=== PATIENT | male | born 1955 | race Caucasian/White ===

== ENCOUNTER 2018-12-09 16:34 | Emergency (ER) | payer BC ==
--- OUTSIDE RECORDS SUMMARY | 2018-12-09 16:38 | XMS REPORT | Continuity of Care Document ---
:1955 External Reference #:[id number] Author Name Shanice Jin Care Team Providers Name Role Phone Carmen Martins MD Care Team Information Teacher Physically Impaired Unavailable Lesvia Mejia MD Primary Care Physician Unavailable Payers Date Identification Numbers Payment Provider Subscriber Effective: 2015 Policy Number: [id number] [facility] Eddie Goldberg PayID: [id number] [address] [place] [address] Advance Directives Type Date Description Status Comment Other Directive 12/05/2008 Health Care Proxy Current and Verified Problems Active Problems Provider Date Depressive disorder Carmen Martins M.D., FACP Onset: 08/20/2010 Pure hypercholesterolemia Carmen Martins M.D., FACP Onset: 08/20/2010 Benign prostatic hypertrophy without Carmen Martins M.D., FACP Onset: 2010 outflow obstruction Obstructive sleep apnea syndrome Roberta Fitch DNP, RN, 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- Family History Date Family Member(s) Observation Comments : (age Father due to MDS Myelodysplastic syndrome, 83 Years) was quadriplegic following cervical fracture, of pneumonia Mother Diabetes, Non Insulin Dependent Mother 87 Mother Kidney Disease Mother Atrial Fibrillation First Son 25 First Son Testicular Cancer First Son Aortic Stenosis bicuspid aortic valve Second Son 21 Third Son 17 First Sister adopted Social History Type Date Description Comments Sex Unknown Marital Status Traci Yusuf 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 days 500-125mg Tablets Bupropion HCL ER 1 by mouth every 90tabs [facility] Roberto, 12/17/2017 (XL) day M.D. 150mg Tablets ER 24HR Wrist Brace/Suede for use at night 1units R20.2 [facility], 2015 Finish/Left M.D. Misc Wrist Brace/Suede For use at night 1units R20.2 [facility], 2015 Finish/Right/ [facility] [address] [facility] Roberto, 10/18/2009 10mg Tablets bedtime M.D. Excedrin Extra 1-2 bid prn 100tabs Unknown Strength [phone] Tablets History Medications Gentamicin Sulfate 1-2 drop in 5ml H10.89 Radha López, 01/01/2017 - 0.3% eyes every 4 M.D. 12/16/2017 Solution hours x 5 days Bupropion HCL ER (XL) take one 90tabs Lesvia 08/24/2013 - 300mg tablet by Arley Mejia 12/17/2017 Tablets ER 24HR mouth in the morning Bupropion HCL XL take one 90tabs 311 Carmen Martins, 05/08/2011 - 300mg tablet by Arley, [facility] 08/24/2013 Tablets ER 24HR mouth in the morning Bupropion HCL XL 1 every day 90tabs 311 Carmen Martins, 04/02/2011 - 150mg every morning M.DMae, FACP 05/08/2011 Tablets ER 24HR Multivitamins 1 capsule QS Carmen Martins, 08/20/2010 - Capsules brady;y Arley, [facility] 06/28/2013 Hydrocodone-Acetaminoph take 1-2 as 30tabs 724.2 Carmen Martins, 08/20/2010 - en needed every M.D., FACP 04/02/2011 5/500mg Tablets 4-6 hours for pain Cyclobenzaprine HCL 1 tablet three 30tabs 724.2 Carmen Martins, 08/20/2010 - 10mg times a day as M.D., [facility] 04/02/2011 Tablets needed Cipro 1 tablet twice 10tabs Carmen Martins, 04/11/2010 - 250mg Tablets daily for 5 M.D., [facility] 08/20/2010 days Zoloft 1 1/2 tablets 135tabs Carmen Martins, 10/18/2009 - 50mg Tablets daily M.D., [facility] 04/02/2011 Wellbutrin XL 1 po qd Carmen Martins, 10/18/2009 - 150mg Tablets M.D., [facility] 08/20/2010 ER 24HR Nasonex 2 sprays each sample Carmen Martins, 10/18/2009 - 50mcg/Act nostril daily M.D., [facility] 08/20/2010 Suspension Metamucil po qd prn Unknown - 28.3% Powder 12/15/2016 Immunizations CPT Code Status Date Vaccine Lot # [id number] Given 11/16/2018 Tetanus And Diptheria (Td) For Adult Use [id number] Preservative Free [id number] Given 02/13/2018 Influenza Virus Vaccine, Quadrivalent, Split, Preservative Free [id number] Given 10/30/2011 Tdap - Tetanus/Diptheria/Acellular Pertussis [id number] Given 10/07/2011 Zoster (Zostavax) [id number] Vital Signs Date Vital Result Comment 11/16/2018 10:47am Height 71 inches 5'11" Weight 199.00 lb Heart Rate 81 /min BP Systolic Sitting 135 mmHg BP Diastolic Sitting 87 mmHg O2 % BldC Oximetry 96 % BMI (Body Mass Index) 27.8 kg/m2 03/19/2018 9:57am Height 71 inches 5'11" Weight 192.00 lb Heart Rate 85 /min BP Systolic 119 mmHg BP Diastolic 78 mmHg O2 % BldC Oximetry 97 % BMI (Body Mass Index) 26.8 kg/m2 12/17/2017 3:03pm Height 71 inches 5'11" Weight 193.00 lb Heart Rate 76 /min BP Systolic 154 mmHg BP Diastolic 102 mmHg BP Systolic Sitting 141 mmHg BP Diastolic Sitting 91 mmHg O2 % BldC Oximetry 97 % BMI (Body Mass Index) 26.9 kg/m2 09/09/2017 1:53pm Height 71 inches 5'11" Weight 198.12 lb Heart Rate 82 /min BP Systolic Sitting 130 mmHg BP Diastolic Sitting 86 mmHg O2 % BldC Oximetry 98 % BMI (Body Mass Index) 27.6 kg/m2 01/01/2017 9:55am Height 71 inches 5'11" Weight 191.25 lb Heart Rate 85 /min BP Systolic Sitting 130 mmHg BP Diastolic Sitting 80 mmHg Body Temperature 96.6 F O2 % BldC Oximetry 98 % BMI (Body Mass Index) 26.7 kg/m2 12/16/2016 11:21am Height 71 inches 5'11" Weight 188.25 lb Heart Rate 80 /min BP Systolic 130 mmHg BP Diastolic 86 mmHg Body Temperature 97.3 F O2 % BldC Oximetry 98 % BMI (Body Mass Index) 26.3 kg/m2 10/07/2016 10:12am Height 71 inches 5'11" Weight 195.00 lb Heart Rate 75 /min BP Systolic 118 mmHg BP Diastolic 86 mmHg O2 % BldC Oximetry 97 % BMI (Body Mass Index) 27.2 kg/m2 12/14/2015 9:19am Height 71 inches 5'11" Weight 193.00 lb Heart Rate 90 /min BP Systolic Sitting 104 mmHg BP Diastolic Sitting 70 mmHg Body Temperature 96.9 F O2 % BldC Oximetry 98 % BMI (Body Mass Index) 26.9 kg/m2 10/03/2015 10:03am Height 71 inches 5'11" Weight 195.00 lb Heart Rate 64 /min BP Systolic Sitting 130 mmHg BP Diastolic Sitting 68 mmHg Respiratory Rate 14 /min O2 % BldC Oximetry 98 % BMI (Body Mass Index) 27.2 kg/m2 08/23/2015 4:26pm Height 71 inches 5'11" Weight 198.00 lb Heart Rate 70 /min BP Systolic Sitting 124 mmHg BP Diastolic Sitting 82 mmHg Respiratory Rate 15 /min Body Temperature 97.0 F O2 % BldC Oximetry 98 % BMI (Body Mass Index) 27.6 kg/m2 12/12/2014 1:36pm Height 71 inches 5'11" Weight 189.50 lb Heart Rate 80 /min BP Systolic Sitting 112 mmHg BP Diastolic Sitting 80 mmHg Body Temperature 96.9 F O2 % BldC Oximetry 99 % BMI (Body Mass Index) 26.4 kg/m2 03/14/2014 9:14am Height 71 inches 5'11" Weight 185.00 lb Heart Rate 72 /min BP Systolic Sitting 110 mmHg BP Diastolic Sitting 80 mmHg Respiratory Rate 16 /min O2 % BldC Oximetry 98 % Ra BMI (Body Mass Index) 25.8 kg/m2 06/28/2013 11:11am Height 71 inches 5'11" Weight 188.00 lb Heart Rate 66 /min BP Systolic Sitting 122 mmHg BP Diastolic Sitting 78 mmHg Respiratory Rate 16 /min Body Temperature 98.4 F BMI (Body Mass Index) 26.2 kg/m2 10/30/2011 1:48pm Height 71 inches 5'11" Weight 192.50 lb Heart Rate 64 /min BP Systolic Sitting 108 mmHg BP Diastolic Sitting 70 mmHg BMI (Body Mass Index) 26.8 kg/m2 10/07/2011 10:40am Height 71 inches 5'11" Weight 190.75 lb Heart Rate 76 /min BP Systolic Sitting 104 mmHg BP Diastolic Sitting 62 mmHg BMI (Body Mass Index) 26.6 kg/m2 07/14/2011 12:02pm Height 71 inches 5'11" Weight 193.12 lb Heart Rate 60 /min BP Systolic Sitting 110 mmHg BP Diastolic Sitting 80 mmHg Body Temperature 98.2 F O2 % BldC Oximetry 98 % BMI (Body Mass Index) 26.9 kg/m2 05/08/2011 11:22am Height 71 inches 5'11" Weight 201.00 lb Heart Rate 76 /min BP Systolic Sitting 122 mmHg BP Diastolic Sitting 74 mmHg BMI (Body Mass Index) 28.0 kg/m2 04/02/2011 11:16am Height 71 inches 5'11" Weight 201.00 lb Heart Rate 60 /min BP Systolic Sitting 112 mmHg L BP Diastolic Sitting 78 mmHg L BMI (Body Mass Index) 28.0 kg/m2 11/27/2010 11:27am Height 71 inches 5'11" Weight 196.00 lb Heart Rate 72 /min BP Systolic Sitting 126 mmHg BP Diastolic Sitting 84 mmHg BMI (Body Mass Index) 27.3 kg/m2 08/20/2010 9:23am Weight 208.00 lb Heart Rate 73 /min BP Systolic Sitting 118 mmHg BP Diastolic Sitting 72 mmHg Results Test Date Facility Test Result H/L Range Note Laboratory test 08/17/2018 [facility] PSA Diagnostic 2.782 ng/ mL N 0-4.[address] [place] [address] [phone] Laboratory test 12/24/2017 [facility] PSA Diagnostic 2.839 ng/ mL N 0-4.[address] [place] [address] [phone] Lipid Profile 12/08/2017 [facility] Triglycerides 136 mg/dL 3 (Trig/Chol/HDL) [address] [place] [address] [phone] Cholesterol 153 mg/dL 4 HDL Cholesterol 51.1 mg/dL 5 LDL Cholesterol 75 mg/dL 6 Comp Metabolic Panel 12/08/2017 [facility] Sodium 141 mmol/L N 135-[address] [place] [address] [phone] Potassium 4.4 mmol/L N 3.5-5.0 Chloride 105 mmol/L N 101-111 Co2 Carbon Dioxide 29 mmol/L N 22-32 Anion Gap 7 mmol/L N 2-11 Glucose 91 mg/dL N 70-100 Blood Urea Nitrogen 17 mg/dL N 6-24 Creatinine 1.04 mg/dL N 0.67-1.17 BUN/Creatinine Ratio 16.3 N 8-20 Calcium 9.2 mg/dL N 8.6-10.3 Total Protein 6.5 g/dL N 6.4-8.9 Albumin 4.3 g/dL N 3.2-5.2 Globulin 2.2 g/dL N 2-4 Albumin/Globulin Ratio 2.0 N 1-3 Total Bilirubin 0.80 mg/dL N 0.2-1.0 Alkaline Phosphatase 74 U/L N 34-104 Alt 22 U/L N 7-52 Ast 17 U/L N 13-39 Egfr Non- 72.8 >60 Egfr 88.1 >60 7 Laboratory test 12/16/2016 [facility] PSA Screening 2.080 N 0- 4.[address] ng/[place] [address] [phone] Lipid Profile 12/01/2016 [facility] Triglycerides 94 mg/dL N 9, 10 (Trig/Chol/HDL) [address] [place] [address] [phone] Cholesterol 132 mg/dL N 11 HDL Cholesterol 43.2 mg/dL N 12 LDL Cholesterol 70 mg/dL N 13 Comp Metabolic Panel 12/01/2016 [facility] Sodium 138 mmol/L N 133-145 [address] [place] [address] [phone] Potassium 4.2 mmol/L N 3.5-5.0 Chloride 105 mmol/L N 101-111 Co2 Carbon Dioxide 29 mmol/L N 22-32 Anion Gap 4 mmol/L N 2-11 Glucose 87 mg/dL N 70-100 Blood Urea Nitrogen 16 mg/dL N 6-24 Creatinine 1.03 mg/dL N 0.67-1.17 BUN/Creatinine Ratio 15.5 N 8-20 Calcium 8.9 mg/dL N 8.6-10.3 Total Protein 6.2 g/dL Low 6.4-8.9 Albumin 4.0 g/dL N 3.2-5.2 Globulin 2.2 g/dL N 2-4 Albumin/Globulin Ratio 1.8 N 1-3 Total Bilirubin 0.90 mg/dL N 0.2-1.0 Alkaline Phosphatase 60 U/L N 34-104 Alt 19 U/L N 7-52 Ast 15 U/L N 13-39 Egfr Non- 73.9 N >60 Egfr 95.1 N >60 14 Lipid Profile 12/08/2015 [facility] Triglycerides 89 mg/dL N 15, 16 (Trig/Chol/HDL) [address] [place] [address] [phone] Cholesterol 147 mg/dL N 17 HDL Cholesterol 49.7 mg/dL N 18 LDL Cholesterol 80 mg/dL N 19 Comp Metabolic Panel 12/08/2015 [facility] Sodium 139 mmol/L N 133-145 [address] [place] [address] [phone] Potassium 4.2 mmol/L N 3.5-5.0 Chloride 105 mmol/L N 101-111 Co2 Carbon Dioxide 29 mmol/L N 22-32 Anion Gap 5 mmol/L N 2-11 Glucose 83 mg/dL N 70-100 Blood Urea Nitrogen 14 mg/dL N 6-24 Creatinine 1.05 mg/dL N 0.67-1.17 BUN/Creatinine Ratio 13.3 N 8-20 Calcium 9.2 mg/dL N 8.6-10.3 Total Protein 6.7 g/dL N 6.4-8.9 Albumin 4.2 g/dL N 3.2-5.2 Globulin 2.5 g/dL N 2-4 Albumin/Globulin Ratio 1.7 N 1-3 Total Bilirubin 1.00 mg/dL N 0.2-1.0 Alkaline Phosphatase 64 U/L N 34-104 Alt 22 U/L N 7-52 Ast 16 U/L N 13-39 Egfr Non- 72.5 N >60 Egfr 93.3 N >60 20 Laboratory 12/12/2014 [facility] HIV 1&2 AB Nonreactive N Nonreactive [address] [place] [address] Referred [phone] Hepatitis C Antibody Nonreactive N Nonreactive Celiac Panel 12/12/2014 [facility] Tissue Transglutaminase <1.2 U/mL N [address] IgA Ab [place], [place] [id number] [phone] Immunoglobulin A 106 mg/dL N 61 - 356 Celiac Interpretation See Comment N 23 Lipid Profile 10/04/2014 [facility] Triglycerides 85 mg/dL N 24, 25 (Trig/Chol/HDL) [address] [place], [place] [address] [phone] Cholesterol 145 mg/dL N 26 HDL Cholesterol 47.4 mg/dL N 27 LDL Cholesterol 81 mg/dL N 28 Comp Metabolic Panel 10/04/2014 [facility] Sodium 139 mmol/L N 133-145 [address] [place], [place] [id number] [phone] Potassium 4.2 mmol/L N 3.5-5.0 Chloride 104 mmol/L N 101-111 Co2 Carbon Dioxide 28 mmol/L N 22-32 Anion Gap 7 mmol/L N 2-11 Glucose 91 mg/dL N 70-100 Blood Urea Nitrogen 17 mg/dL N 6-24 Creatinine 1.13 mg/dL N 0.67-1.17 BUN/Creatinine Ratio 15.0 N 8-20 Calcium 9.2 mg/dL N 8.6-10.3 Total Protein 6.4 g/dL N 6.4-8.9 Albumin 4.4 g/dL N 3.2-5.2 Globulin 2.0 g/dL N 2-4 Albumin/Globulin Ratio 2.2 N 1-3 Total Bilirubin 1.00 mg/dL N 0.2-1.0 Alkaline Phosphatase 62 U/L N 34-104 Alt 28 U/L N 7-52 Ast 20 U/L N 13-39 Egfr Non- 66.9 N >60 Egfr 86.0 N >60 29 Comp Metabolic Panel 07/05/2013 [facility] Sodium 142 mmol/L 133-[address] [place] [address] [phone] Potassium 4.4 mmol/L 3.7-5.6 Chloride 109 mmol/L 101-111 Co2 Carbon Dioxide 28 mmol/L 22-32 Anion Gap 5 mmol/L 2-11 Glucose 100 mg/dL 70-100 Blood Urea Nitrogen 13 mg/dL 6-24 Creatinine 1.03 mg/dL 0.67-1.17 BUN/Creatinine Ratio 12.6 8-20 Calcium 9.2 mg/dL 8.6-10.3 Total Protein 6.6 g/dL 6.4-8.9 Albumin 4.3 g/dL 3.2-5.2 Globulin 2.3 g/dL 2-4 Albumin/Globulin Ratio 1.9 1-3 Total Bilirubin 0.40 mg/dL 0.2-1.0 Alkaline Phosphatase 66 U/L 34-104 Alt 29 U/L 7-52 Ast 18 U/L 13-39 Egfr Non- 74.7 >60 Egfr 96.1 >60 30 Laboratory test 07/05/2013 [facility] TSH (Thyroid 1.77 0.34- 5.[address] Stimulating Horm) IU/[place] [address] [phone] Lipid Profile 07/05/2013 [facility] Triglycerides 94 mg/dL 32 (Trig/Chol/HDL) [address] [place] [address] [phone] Cholesterol 119 mg/dL 33 HDL Cholesterol 45.0 mg/dL 34 LDL Cholesterol 55 mg/dL 35 Laboratory test 01/05/2012 [facility] C Reactive 1.3 mg/L Less Than [address] Protein High 3 [place] [address] Sensit [phone] Lipid Profile 01/05/2012 [facility] Triglyceride 73 mg/dL 40- 200 (Trig/Chol/HDL) [address] [place], [place] [id number] [phone] Cholesterol 148 mg/dL Less Than 200 37 High Density Lipoprotein 46 mg/dL 40-60 38 Cholesterol/HDL Ratio 3.22 AVERAGE 1-4.97 Low Density Lipoprotein 87 mg/dL Less Than 100 39 Laboratory test 01/05/2012 [facility] Erythrocyte Sed 10 MM/HR 0-[address] [place] [address] [phone] Liver Function 01/05/2012 [facility] Total Protein 6.7 GM/DL 6.2-8.[address] [place] [address] [phone] Albumin 4.3 GM/DL 3.6-5.4 Globulin 2.4 GM/DL 2-4 Albumin/Globulin Ratio 1.8 1-3 Bilirubin Total 1.5 mg/dL 0.4-1.5 40 Bilirubin Direct 0.2 mg/dL 0.1-0.5 Indirect Bilirubin 1.3 mg/dL High 0.3-1.0 41 Alkaline Phosphatase 71 U/L 39-117 Alt (SGPT) 34 U/L 17-63 Ast (Sgot) 24 U/L 12-42 Laboratory test 01/05/2012 [facility] PSA,Diagnostic 1.00 NG/ML 0-4 [address] [place] [address] [phone] Lipid Profile 10/10/2011 [facility] Triglyceride 132 mg/dL 40 -200 (Trig/Chol/HDL) [address] [place] [address] [phone] Cholesterol 208 mg/dL High Less Than 200 43 High Density Lipoprotein 49 mg/dL 40-60 44 Cholesterol/HDL Ratio 4.24 AVERAGE 1-4.97 Low Density Lipoprotein 133 mg/dL High Less Than 100 45 Comp Metabolic Panel 10/10/2011 [facility] Sodium 138 mmol/L 135-[address] [place] [address] [phone] Potassium 4.3 mmol/L 3.5-5.0 Chloride 104 mmol/L 101-111 Co2 (Carbon Dioxide) 29.0 mmol/L 22-32 Anion Gap 5.0 mmol/L 2-11 46 Glucose 94 mg/dL 70-100 BUN 12 mg/dL 6-24 Creatinine 1.1 mg/dL 0.50-1.40 One Over Creatinine 0.90 BUN/Creatinine Ratio 10.9 8-20 Calcium 9.3 mg/dL 8.1-9.9 Total Protein 6.6 GM/DL 6.2-8.1 Albumin 3.9 GM/DL 3.6-5.4 Globulin 2.7 GM/DL 2-4 Albumin/Globulin Ratio 1.4 1-3 Bilirubin Total 0.9 mg/dL 0.4-1.5 47 Alkaline Phosphatase 80 U/L 39-117 Alt (SGPT) 36 U/L 17-63 Ast (Sgot) 30 U/L 12-42 eGFR Non- 69.8 > 60 eGFR 89.7 > 60 48 Laboratory test 10/10/2011 [facility] C Reactive 17.0 mg/L High Less Than [address] Protein High 3 [place] [address] Sensit [phone] 1 Serum levels of PSA measured using the Johanna [place]den DXI Hybritech immunoassay should not be interpreted as absolute evidence of the presence or absence of disease. The PSA value should be used in conjunction with other pertinent clinical diagnostic procedures. The values obtained with different assay methods or kits cannot be used interchangeably. 2 Serum levels of PSA measured using the Johanna [place] DXI Hybritech immunoassay should not be interpreted as absolute evidence of the presence or absence of disease. The PSA value should be used in conjunction with other pertinent clinical diagnostic procedures. The values obtained with different assay methods or kits cannot be used interchangeably. 3 Desirable: <150 Borderline High: 150-199 High: 200-499 Very High: >500 4 Desirable: <200 Borderline High: 200-239 High: >239 5 Low: <40 Desirable: 40-60 High: >60 6 Desirable: <100 Near Optimal: 100-129 Borderline High: 130-159 High: 160-189 Very High: >189 7 Because ethnic data is not always readily available, this report includes an eGFR for both -Americans and non- Americans. The National Kidney Disease Education Program (NKDEP) does not endorse the use of the MDRD equation for patients that are not between the ages of 18 and 70, are , have extremes of body size, muscle mass, or nutritional status, or are non- or non-. According to the National Kidney Foundation, irrespective of diagnosis, the stage of the disease is based on the level of kidney function: Stage Description GFR(mL/min/1.73 m(2)) 1 Kidney damage with normal or decreased GFR 90 2 Kidney damage with mild decrease in GFR 60-89 3 Moderate decrease in GFR 30-59 4 Severe decrease in GFR 15-29 5 Kidney failure <15 (or dialysis) 8 Serum levels of PSA measured using the Johanna [employer] DXI Hybritech immunoassay should not be interpreted as absolute evidence of the presence or absence of disease. The PSA value should be used in conjunction with other pertinent clinical diagnostic procedures. The values obtained with different assay methods or kits cannot be used interchangeably. 9 PT IS FASTING 10 Desirable <150 Borderline high 150-199 High 200-499 Very High >500 11 Desirable <200 Borderline high 200-239 High >239 12 Low <40 Desirable: 40-60 High: >60 13 Desirable: <100 mg/dL Near Optimal: 100-129 mg/dL Borderline High: 130-159 mg/dL High: 160-189 mg/dL Very High: >189 mg/dL 14 Because ethnic data is not always readily available, this report includes an eGFR for both -Americans and non- Americans. The National Kidney Disease Education Program (NKDEP) does not endorse the use of the MDRD equation for patients that are not between the ages of 18 and 70, are , have extremes of body size, muscle mass, or nutritional status, or are non- or non-. According to the National Kidney Foundation, irrespective of diagnosis, the stage of the disease is based on the level of kidney function: Stage Description GFR(mL/min/1.73 m(2)) 1 Kidney damage with normal or decreased GFR 90 2 Kidney damage with mild decrease in GFR 60-89 3 Moderate decrease in GFR 30-59 4 Severe decrease in GFR 15-29 5 Kidney failure <15 (or dialysis) 15 FASTING 12 HRS 16 Desirable <150 Borderline high 150-199 High 200-499 Very High >500 17 Desirable <200 Borderline high 200-239 High >239 18 Low <40 Desirable: 40-60 High: >60 19 Desirable: <100 mg/dL Near Optimal: 100-129 mg/dL Borderline High: 130-159 mg/dL High: 160-189 mg/dL Very High: >189 mg/dL 20 Because ethnic data is not always readily available, this report includes an eGFR for both -Americans and non- Americans. The National Kidney Disease Education Program (NKDEP) does not endorse the use of the MDRD equation for patients that are not between the ages of 18 and 70, are , have extremes of body size, muscle mass, or nutritional status, or are non- or non-. According to the National Kidney Foundation, irrespective of diagnosis, the stage of the disease is based on the level of kidney function: Stage Description GFR(mL/min/1.73 m(2)) 1 Kidney damage with normal or decreased GFR 90 2 Kidney damage with mild decrease in GFR 60-89 3 Moderate decrease in GFR 30-59 4 Severe decrease in GFR 15-29 5 Kidney failure <15 (or dialysis) 21 It is recognized that currently available assays for the detection of antibodies to HIV-1 and/or HIV-2 may not detect all infected individuals. HIV antibodies may be undetectable in some stages of the infection and in some clinical conditions. The performance of this assay has not been established for populations of infants or children. Assayed by Chemiluminescence Microparticle Immunoassay on the Siemens Advia Centaur CP. Values obtained with different methods or kits cannot be used interchangeably.The diagnostic specificity of the ADVIA Centaur 1/O/2 Enhanced assay in the low risk population was 99.90% (6052/6058) with a 95% confidence interval of 99.78 to 99.96%. 22 REFERENCE VALUE <4.0 (Negative) Test Performed by: [place] [address] Distribution Spec: Luisito Snow II, M.D., Ph.D. 23 Negative serology. Celiac disease unlikely. However, approximately 10% of patients with celiac disease are seronegative. Also, patients who are already adhering to a gluten-free diet may be seronegative. If celiac disease is highly clinically suspected, consider HLA-DQ typing. Test Performed by: [place] [address] Distribution Spec: Luisito Snow II, M.D., Ph.D. 24 FASTING 25 Desirable <150 Borderline high 150-199 High 200-499 Very High >500 26 Desirable <200 Borderline high 200-239 High >239 27 Low <40 Desirable: 40-60 High: >60 28 Desirable: <100 mg/dL Near Optimal: 100-129 mg/dL Borderline High: 130-159 mg/dL High: 160-189 mg/dL Very High: >189 mg/dL 29 Because ethnic data is not always readily available, this report includes an eGFR for both -Americans and non- Americans. The National Kidney Disease Education Program (NKDEP) does not endorse the use of the MDRD equation for patients that are not between the ages of 18 and 70, are , have extremes of body size, muscle mass, or nutritional status, or are non- or non-. According to the National Kidney Foundation, irrespective of diagnosis, the stage of the disease is based on the level of kidney function: Stage Description GFR(mL/min/1.73 m(2)) 1 Kidney damage with normal or decreased GFR 90 2 Kidney damage with mild decrease in GFR 60-89 3 Moderate decrease in GFR 30-59 4 Severe decrease in GFR 15-29 5 Kidney failure <15 (or dialysis) 30 Because ethnic data is not always readily available, this report includes an eGFR for both -Americans and non- Americans. The National Kidney Disease Education Program (NKDEP) does not endorse the use of the MDRD equation for patients that are not between the ages of 18 and 70, are , have extremes of body size, muscle mass, or nutritional status, or are non- or non-. According to the National Kidney Foundation, irrespective of diagnosis, the stage of the disease is based on the level of kidney function: Stage Description GFR(mL/min/1.73 m(2)) 1 Kidney damage with normal or decreased GFR 90 2 Kidney damage with mild decrease in GFR 60-89 3 Moderate decrease in GFR 30-59 4 Severe decrease in GFR 15-29 5 Kidney failure <15 (or dialysis) 31 FASTING 32 Desirable <150 Borderline high 150-199 High 200-499 Very High >500 33 Desirable <200 Borderline high 200-239 High >239 34 Low <40 Desirable: 40-60 High: >60 35 Desirable <100 Near Optimal 100-129 Borderline high 130-159 High 160-189 Very High >189 36 Less Than 1.0......Low Risk of Cardiovascular Disease 1.0-3.0............Medium Risk (<2 Fold Increase) Greater Than 3.0...High Risk (Approximately 2-Fold Increase) 37 CHOLESTEROL INTERPRETATION: Desirable: Less than 200 MG/DL Borderline-High Risk: 200-239 MG/DL High-Risk: 240 MG/DL and over 38 HDL INTERPRETATION: Undesirable: High Risk: Less than 40 MG/DL Desirable: Low Risk: Greater than 60 MG/DL 39 LDL INTERPRETATION: Low Risk Optimal Level: LDL Less than 100 MG/DL Near or Above Optimal: LDL 100-129 MG/DL Borderline High Risk: LDL 130-159 MG/DL High Risk: LDL 160-189 MG/DL Very High Risk: LDL Greater than 189 MG/DL 40 A metabolite of Naproxen, O-desmethylnaproxen, has been shown to interfere with the Jendrassik-Katie method for measuring total bilirubin. Samples from patients who have taken Naproxen have shown spurious elevation in total bilirubin levels. 41 Please note updated reference range, effective 11/29/09 42 * SERUM LEVELS OF PSA MEASURED USING THE JOHANNA HAYDEN ACCESS HYBRITECH IMMUNOASSAY SHOULD NOT BE INTERPRETED ABSOLUTE EVIDENCE OF THE PRESENCE OR ABSENCE OF DISEASE. THE PSA VALUE SHOULD BE USED IN CONJUNCTION WITH OTHER PERTINENT CLINICAL DIAGNOSTIC PROCEDURES. The values obtained with different assay methods or kits cannot be used interchangeably. 43 CHOLESTEROL INTERPRETATION: Desirable: Less than 200 MG/DL Borderline-High Risk: 200-239 MG/DL High-Risk: 240 MG/DL and over 44 HDL INTERPRETATION: Undesirable: High Risk: Less than 40 MG/DL Desirable: Low Risk: Greater than 60 MG/DL 45 LDL INTERPRETATION: Low Risk Optimal Level: LDL Less than 100 MG/DL Near or Above Optimal: LDL 100-129 MG/DL Borderline High Risk: LDL 130-159 MG/DL High Risk: LDL 160-189 MG/DL Very High Risk: LDL Greater than 189 MG/DL 46 Anion gap measurement may be of limited value in the presence of any alkalosis, especially in a combined acid base disorder. . 47 A metabolite of Naproxen, O-desmethylnaproxen, has been shown to interfere with the Jendrassik-Ponderay method for measuring total bilirubin. Samples from patients who have taken Naproxen have shown spurious elevation in total bilirubin levels. 48 Because ethnic data is not always readily available, this report includes an eGFR for both -Americans and non- Americans. The National Kidney Disease Education Program (NKDEP) does not endorse the use of the MDRD equation for patients that are not between the ages of 18 and 70, are , have extremes of body size, muscle mass, or nutritional status, or are non- or non-. According to the National Kidney Foundation, irrespective of diagnosis, the stage of the disease is based on the level of kidney function: Stage Description GFR(mL/min/1.73 m(2)) 1 Kidney damage with normal or decreased GFR 90 2 Kidney damage with mild decrease in GFR 60-89 3 Moderate decrease in GFR 30-59 4 Severe decrease in GFR 15-29 5 Kidney failure <15 (or dialysis) 49 Less Than 1.0......Low Risk of Cardiovascular Disease 1.0-3.0............Medium Risk (<2 Fold Increase) Greater Than 3.0...High Risk (Approximately 2-Fold Increase) Procedures Date Code Description Status 03/06/2015 [id number] Colonoscopy Completed 07/12/2013 14635 Stress Test Completed 06/28/2013 37446 EKG Tracing & Interpretation Completed 10/07/2011 31934 EKG Tracing & Interpretation Completed 01/25/2008 [id number] Colonoscopy Completed 12/10/2007 38329 EKG Tracing & Interpretation Completed 12/10/2007 51580 EKG Tracing & Interpretation Completed Encounters Type Date Location Provider Dx Diagnosis Office Visit 03/19/2018 Lida Mejia, R03.0 Elevated 10:00a Jose Deleon M.D. blood-pressure reading, w/o diagnosis of htn Office Visit 12/17/2017 Lida Mejia, Z00.00 Encntr for 3:00p Jose Deleon M.D. general adult medical exam w/o abnormal findings N40.1 Benign prostatic hyperplasia with lower urinary tract symp R03.0 Elevated blood-pressure reading, w/o diagnosis of htn F32.89 Other specified depressive episodes Z00.01 Encounter for general adult medical exam w abnormal findings Office Visit 09/09/2017 2:00p [facility] Zsofia M77.11 Lateral Medicine - Priyank, [employer] epicondylitis, right Suite R elbow M25.521 Pain in right elbow Office 01/01/2017 DoNotUse [facility] Radha H10.89 Other Visit 9:50a Medicine-Antonia López M.D. conjunctivitis Office 12/16/2016 [facility] Medicine Lesvia Z00.00 Encntr for general Visit 11:00a - Adrienne Mejia M.D. adult medical exam w/o abnormal findings F34.1 Dysthymic disorder Z12.5 Encounter for screening for malignant neoplasm of prostate Office Visit 10/07/2016 Pulmonology And Tammy Santizo, G47.33 Obstructive sleep 10:00a [facility] (adult) [facility] (pediatric) Office Visit 12/14/2015 [facility] Lesvia Z00.01 Encounter for 9:20a Medicine Sebastien Mejia M.D. general adult medical exam w abnormal findings H91.90 Unspecified hearing loss, unspecified ear R20.2 Paresthesia of skin Office Visit 10/03/2015 Pulmonology And Tammy Santizo, G47.33 Obstructive sleep 10:00a [facility] (adult) [facility] (pediatric) Office Visit 08/23/2015 [facility] Lesvia R21 Rash and other 4:20p Jose Mejia M.D. nonspecific skin eruption R20.2 Paresthesia of skin Office Visit 12/12/2014 1:40p [facility] Lesvia V70.0 Examination Jose [facility] M.D. [facility] V73.89 Screening Examination Viral Diseases Other Spec 787.91 Diarrhea Office Visit 03/14/2014 9:00a Pulmonology And Tammy 327.23 Obstructive Sleep [facility]arly[facility] Apnea Adult & [facility] Pediatric Office Visit 06/28/2013 11:00a [facility] Carmen Martins, V70.0 Examination Medicine Sebastien Deleon M.D., FACP General Medical Routine AT Health Care Facility 272.0 Hypercholesterolemia Pure 311 Depressive Disorder Not Elsewhere Spec 600.90 Hyperplasia Of Prostate,Unspecified W/O Urinary Obstruction 782.0 Skin Sensation Disturbance 709.8 Skin Disorders Other Spec 786.09 Dyspnea & Respiratory Abnormalities Other Office Visit 10/30/2011 [facility] Carmen Lakshmi, 272.0 Hypercholesterolemia Pure 1:40p Medicine - M.D., FACP Ccmob 782.0 Skin Sensation Disturbance v06.1 Dfjmyzjbjv-Fgnwddu-Xioukxvo Combined (DTaP) Office Visit 10/07/2011 10:40a [facility] Carmenayaka Martins, V70.0 Examination [facility] FACP General Medical Routine AT [facility] 272.0 Hypercholesterolemia Pure 311 Depressive Disorder Not Elsewhere Spec V04.89 Need For Prophylactic Vaccination & Inoculation Other Virus Office Visit 07/14/2011 12:00p [facility] Carmen Martins, 527.2 Salivary Gland Medicine - M.Anderson, FACP Sialoadenitis Ccmob 719.46 Pain Joint Lower Leg Office Visit 05/08/2011 11:20a DO Not Use Carmenayaka Martins 311 Depressive Gigi Tubbs, FACP Disorder Not Elsewhere Spec Office Visit 04/02/2011 11:00a DO Not Use Carmenayaka Martins 311 Depressive Gigi Tubbs, FACP Disorder Not Elsewhere Spec 564.1 Irritable Bowel Syndrome Office Visit 11/27/2010 11:20a DO Not Use Carmenayaka Martins, 726.33 Bursitis Gigi Tubbs, FACP Olecranon Office Visit 08/20/2010 9:15a DO Not Use Carmen Martins 724.2 Lumbago Gigi Tubbs, FACP Office Visit 10/18/2009 2:30p DO Not Use Carmenayaka Martins, 465.9 URI Upper Gigi Tubbs, FACP Respiratory Infections Acute Unspec Sites 373.11 Hordeolum Externum Office 04/18/2008 DO Not Use Carmen 724.2 Lumbago Visit 9:15a Gigi Martins M.D., FACP Office 02/15/2008 DO Not Use Carmen 311 Depressive Disorder Not Visit 9:00a Gigi Martins M.D., Elsewhere Spec FACP Office 01/13/2008 DO Not Use Carmen 272.0 Hypercholesterolemia Visit 10:45a Gigi Martins M.D., Pure FACP 309.0 Adjustment Disorder With Depression Office Visit 12/10/2007 10:15a DO Not Use Carmen Martins, V70.0 Examination Gigi Tubbs, KT General Medical Routine AT Health Care Facility 272.0 Hypercholesterolemia Pure 600.90 Hyperplasia Of Prostate,Unspecified W/O Urinary Obstruction Office Visit 10/27/2006 2:30p DO Not Use Carmen Martins, 922.2 Contusion Gigi Tubbs, KT Abdominal Wall Office Visit 11/27/2005 9:30a DO Not Use Carmen Martins, Gigi Tubbs, [facility] Plan of Treatment Future Appointment(s):12/20/2018 3:00 pm - Lesvia Mejia M.D. at [facility] - Radha López M.D.L03.011 Cellulitis of right fingerNew Medication:Amoxicillin/Clavulanate Potassium 500-125 mg - 1 tab every 12 hours for 10 daysReferral:Jaquan Quinn MD, QpthlosfeqnK58.561 Pain in right kneeNew Therapy:Physical [id number] Encounter for immunization
--- NOTE | 2018-12-09 17:21 | UC ---
General HPI - HPI Summary HPI Summary: 63 yo c/o last day or two, sore throat. Subj elevated temperature, myalgia / achy. No GI Issues. No rash. No h/a, vis / aud issues. Minimal cough, no sob / cp / palpitations. Works at [employer]. - History of Current Complaint Stated Complaint: FEVER, AND SORE THROAT Time Seen by Provider: 12/09/18 17:21 Hx Obtained From: Patient - Allergy/Home Medications Allergies/Adverse Reactions: Allergies Allergy/AdvReac Type Severity Reaction Status Date / Time No Known Allergies Allergy Verified 12/09/18 17:23 Home Medications: Home Medications Acetaminophen TAB* [Tylenol TAB*] 500 mg PO Q4H PRN 12/09/18 [History Confirmed 12/09/18] PMH/Surg Hx/FS Hx/Imm Hx Previously Healthy: Yes - Surgical History Surgical History: Unable to Obtain/Confirm - Family History Known Family History: Positive: Non-Contributory - Social History Lives: With Family Review of Systems All Other Systems Reviewed And Are Negative: Yes Constitutional: Positive: Other - see hpi Skin: Positive: Negative Eyes: Positive: Negative ENT: Positive: Other - see hpi Respiratory: Positive: Other - see hpi Cardiovascular: Positive: Negative Gastrointestinal: Positive: Negative Genitourinary: Positive: Negative Motor: Positive: Negative Neurovascular: Positive: Negative Musculoskeletal: Positive: Other: - see hpi Neurological: Positive: Negative Psychological: Positive: Negative Is Patient Immunocompromised?: No Physical Exam Triage Information Reviewed: Yes Appearance: Well-Appearing, Well-Nourished Eye Exam: Normal ENT Exam: Other - TMs bilat dull, rtx, dark healy. Intact. EAC ok. Post pharynx red, uvula mildly edematous, but no deviation, airway patent. No sores / exudates. Tongue unremarkable. Neck supple, no adenopathy appreciated. ENT: Positive: TM dull Neck exam: Normal Neck: Positive: Supple Respiratory Exam: Normal Respiratory: Positive: Chest non-tender, Lungs clear, Normal breath sounds, No respiratory distress, No accessory muscle use Cardiovascular Exam: Normal Cardiovascular: Positive: RRR, No Murmur, Pulses Normal, Brisk Capillary Refill Abdominal Exam: Normal Abdomen Description: Positive: Nontender Musculoskeletal Exam: Normal - gait steady, moves x 4 ext's Neurological Exam: Normal - grossly nonfocal Psychological Exam: Normal - conversing easily and appropriately full sentances Skin Exam: Normal - no visible or reported rash, nondiaphoretic Course/Dx - Course Course Of Treatment: RST neg. Throat cx sent. Pt is pretty sure that he has been exposed to mononucleosis in the past. Going on vacation in 2 days. Will send in rx prednisone 2 doses, and amoxillicillin. He would prefer however to wait to see how he is feeling and see cx result prior to taking abx. Aware not to take prednisone without taking abx (ie both). Will call pcp office re f/u. Questions as posed answered to the best of my ability. - Diagnoses Provider Diagnosis: Pharyngitis Discharge - Sign-Out/Discharge Documenting (check all that apply): Patient Departure All imaging exams completed and their final reports reviewed: No Studies - Discharge Plan Condition: Stable Disposition: HOME Prescriptions: Amoxicillin PO (*) [Amoxicillin 875 MG (*)] 875 mg PO BID #20 tab predniSONE TAB* [Deltasone 20 MG TAB*] 20 mg PO DAILY #2 tab Patient Education Materials: Pharyngitis (ED) Referrals: Lesvia Mejia MD [Primary Care Provider] - Additional Instructions: Hydrate. Rapid strep throat test negative here today. Throat culture has been sent. Amoxicillin - please eat yogurt daily. Prednisone daily x 2 days, not immediately prior to going to sleep. Seek medical attention for worse or new problems. - Billing Disposition and Condition Condition: STABLE Disposition: Home
[2018-12-09 17:22] VITALS: BP 133/83
== END 2018-12-09 18:04 | disposition home or self-care (01) ==
LOC: UCEAST 16:34
DX: J02.9 Acute pharyngitis, unspecified (principal)
CPT/HCPCS: 87070; 87651; 99212; G0463

== ENCOUNTER 2022-03-27 20:09 | Inpatient (IN) ==
[2022-03-27] MEDS ORDERED: NS 0.9% 1000 ml BAG 1,000 ML IV ONE (20:18)
[2022-03-27 21:06] LABS: Hematocrit 36 % (42-52); Hemoglobin 11.9 g/dL (14.0-18.0); Mean Corpuscular HGB Conc 33 g/dL (31-36); Mean Corpuscular Hemoglobin 27 pg (27-31); Mean Corpuscular Volume 84 fL (80-94); Mean Platelet Volume 8.8 fL (7.4-10.4); Platelet Count 134 10^3/uL (150-450); Red Blood Count 4.36 10^6 /uL (4.18-5.48); Red Cell Distribution Width 15 % (10-15); White Blood Count 14.9 10^3/uL (3.5-10.8)
[2022-03-27 21:47] LABS: Albumin 3.2 g/dL (3.2-5.2); Albumin/Globulin Ratio 1.2 (1-3); C Reactive Protein 317.59 mg/L (<8.01); Calcium 8.1 mg/dL (8.6-10.3); Globulin 2.7 g/dL (2-4); Potassium 3.6 mmol/L (3.5-5.0); Total Bilirubin 1.6 mg/dL (0.2-1.0); Total Protein 5.9 g/dL (6.4-8.9); eGFR CKD-EPI 53.9 (>60)
[2022-03-27 22:10] LABS: RBC Morphology Normal (Normal)
[2022-03-27 22:11] LABS: ABS Lymphocytes 0.7 10^3/ul (1.0-4.8); ABS Monocytes 2.1 10^3/ul (0-0.8); ABS Neutrophils 12.1 10^3/ul (1.5-7.7); Eosinophil % 0.3 %; Lymphocyte % 4.7 %
[2022-03-27] MEDS ORDERED: cefTRIAXone 1 gm/50 mL D5W 1 GM/50 ML BAG IV ONE (22:49)
[2022-03-27] MEDS ORDERED: Vancomycin 1,000 MG in NS 0.9% 250 ml 250 ML IVPB ONE (22:59)
[2022-03-27] MEDS ORDERED: Vancomycin per Pharmacy 1 EA NOTE FOLLOW UP SCH (23:00)
[2022-03-27] MEDS ORDERED: Piperacillin/Tazobac ADVAN 3.375 GM in NS 0.9% 100 ml BAG 100 ML IV ONE (23:00)
[2022-03-27 23:49] LABS: Urine Appearance Cloudy; Urine Bilirubin Negative (Negative); Urine Blood 1+ (Negative); Urine Color Yellow; Urine Glucose Negative (Negative); Urine Ketones Negative (Negative); Urine Nitrite Negative (Negative); Urine Protein Negative (Negative); Urine Specific Gravity 1.009 (1.002-1.030); Urine Urobilinogen Negative (Negative)
[2022-03-28] LABS: Urine Bacteria 1+ (Absent); Urine Red Blood Cell Trace(0-2/hpf) (Absent); Urine Squamous Epithelial Cell Present (Absent); Urine White Blood Cell Trace(0-5/hpf) (Absent)
[2022-03-28] MEDS ORDERED: Ondansetron 4 mg VIAL 2 MG/ML 2 ml VIAL IV PRN (00:59)
[2022-03-28] MEDS: Enoxaparin 40 MG/0.4 ML SYR SUBCUT SCH ×2 (01:43→19:31)
[2022-03-28 01:57] LABS: Magnesium 2.2 mg/dL (1.9-2.7)
[2022-03-28] MEDS ORDERED: Lactated Ringers 1000 ml BAG 1,000 ML IV ONE ×2 (02:26→02:50)
[2022-03-28] MEDS: DOXYcycline 100 MG in NS 0.9% 250 ml 250 ML IVPB SCH ×2 (03:48→14:34)
[2022-03-28 05:27] LABS: Hematocrit 32 % (42-52); Hemoglobin 10.7 g/dL (14.0-18.0); Mean Corpuscular HGB Conc 34 g/dL (31-36); Mean Corpuscular Hemoglobin 28 pg (27-31); Mean Corpuscular Volume 83 fL (80-94); Mean Platelet Volume 8.6 fL (7.4-10.4); Platelet Count 134 10^3/uL (150-450); Red Blood Count 3.81 10^6 /uL (4.18-5.48); Red Cell Distribution Width 14 % (10-15); White Blood Count 13.5 10^3/uL (3.5-10.8)
[2022-03-28 05:35] LABS: INR 1.29 (0.89-1.11)
[2022-03-28 05:53] LABS: Total Iron Binding Capacity 186 mcg/dL (250-450); Transferrin 133 mg/dL (203-362)
[2022-03-28 05:57] LABS: % Iron Saturation 11 % (15-55); Iron < 20 ug/dL (50-212); Unsaturated Iron Binding 166 ug/dL
[2022-03-28 06:03] LABS: Albumin 2.8 g/dL (3.2-5.2); Albumin/Globulin Ratio 1.2 (1-3); Calcium 7.5 mg/dL (8.6-10.3); Globulin 2.3 g/dL (2-4); Potassium 3.7 mmol/L (3.5-5.0); Total Bilirubin 1.5 mg/dL (0.2-1.0); Total Protein 5.1 g/dL (6.4-8.9); eGFR CKD-EPI 73.7 (>60)
[2022-03-28 06:16] LABS: Ferritin 1043.5 ng/mL (24-336)
[2022-03-28 06:19] LABS: Folate 14.28 ng/mL (5.90-24.80)
[2022-03-28 06:20] LABS: Vitamin B12 203 pg/mL (180-914)
[2022-03-28 06:56] LABS: Anisocytosis 2+; RBC Morphology Normal (Normal); Tear Drop Cells 1+
[2022-03-28 06:57] LABS: Acanthocytes 2+; Toxic Granulation 1+
[2022-03-28 06:58] LABS: Dohle Bodies Present
[2022-03-28 06:59] LABS: ABS Lymphocytes 0.8 10^3/ul (1.0-4.8); ABS Monocytes 2.2 10^3/ul (0-0.8); ABS Neutrophils 10.5 10^3/ul (1.5-7.7); Eosinophil % 0.1 %; Lymphocyte % 5.7 %
[2022-03-28 09:29] LABS: LDH 217 U/L (140-271)
[2022-03-28 10:33] LABS: Corrected Retic Count 0.2 % (0.5-1.5); Hematocrit for Retic CNT 32 % (42-52); Immature Retic Fraction 0.37; RBC Retic Count 3.85 10^6/uL (4.18-5.48)
[2022-03-28 11:45] LABS: HIV 4th Generation Nonreactive (Nonreactive)
[2022-03-28] MEDS ORDERED: cefTRIAXone 1 gm/50 mL D5W 1 GM/50 ML BAG IV SCH (21:00)
[2022-03-29] MEDS: DOXYcycline 100 MG in NS 0.9% 250 ml 250 ML IVPB SCH (03:28)
[2022-03-29 07:18] LABS: Hematocrit 31 % (42-52); Hemoglobin 10.8 g/dL (14.0-18.0); Mean Corpuscular HGB Conc 34 g/dL (31-36); Mean Corpuscular Hemoglobin 29 pg (27-31); Mean Corpuscular Volume 84 fL (80-94); Platelet Count 180 10^3/uL (150-450); Red Blood Count 3.73 10^6 /uL (4.18-5.48); Red Cell Distribution Width 15 % (10-15); White Blood Count 15.6 10^3/uL (3.5-10.8)
[2022-03-29 08:08] LABS: Calcium 7.7 mg/dL (8.6-10.3); Potassium 4.1 mmol/L (3.5-5.0); eGFR CKD-EPI 70.6 (>60)
[2022-03-29] MEDS ORDERED: Lactated Ringers 1000 ml BAG 1,000 ML IV ONE (08:18)
[2022-03-29 09:27] LABS: ABS Basophils 0.1 10^3/ul (0-0.2); ABS Eosinophils 0.1 10^3/ul (0-0.6); ABS Lymphocytes 1.3 10^3/ul (1.0-4.8); ABS Monocytes 1.9 10^3/ul (0-0.8); ABS Neutrophils 12.2 10^3/ul (1.5-7.7); Eosinophil % 0.8 %; Lymphocyte % 8.5 %
[2022-03-29 10:04] LABS: PCO2 Arterial 32 mmHg (35-45); PO2 Arterial 91 mmHg (80-100)
[2022-03-29] MEDS ORDERED: Albuterol/Ipratropium NEB.SOL (2.5/0.5 MG) 3 ML NEB.SOLN INH PRN (11:05)
[2022-03-29] MEDS ORDERED: Furosemide 20 mg/2 ml IV VIAL IV SLOW PU ONE (11:06)
[2022-03-29] MEDS ORDERED: Iohexol 350 (CONTRAST) 500 ML MDV IV ONE (11:17)
[2022-03-29] MEDS: Azithromycin 500 mg/250 ml NS 500 MG/250 ML BAG IVPB SCH (12:59)
[2022-03-29] MEDS ORDERED: ZOSYN 3.375 GM x ONE DOSE over 30 miuntes IV (13:00)
[2022-03-29] MEDS ORDERED: Zosyn per Pharmacy NOTE FOLLOW UP SCH (13:00)
[2022-03-29] MEDS ORDERED: Lactated Ringers 1000 ml BAG 500 ML IV ONE (16:41)
[2022-03-29] MEDS: ZOSYN 3.375 GM Q8H per EXTENDED INFUSION IV SCH (17:46)
[2022-03-29 20:55] LABS: PCO2 Arterial 34 mmHg (35-45); PO2 Arterial 77 mmHg (80-100)
[2022-03-29] MEDS ORDERED: Furosemide 40 mg/4 ml IV VIAL IV ONE (20:56)
[2022-03-29] MEDS: Enoxaparin 40 MG/0.4 ML SYR SUBCUT SCH (21:19)
[2022-03-30] MEDS: ZOSYN 3.375 GM Q8H per EXTENDED INFUSION IV SCH ×3 (02:23→18:01)
[2022-03-30 06:57] LABS: Hematocrit 32 % (42-52); Hemoglobin 10.6 g/dL (14.0-18.0); Mean Corpuscular HGB Conc 33 g/dL (31-36); Mean Corpuscular Hemoglobin 28 pg (27-31); Mean Corpuscular Volume 84 fL (80-94); Mean Platelet Volume 8.5 fL (7.4-10.4); Platelet Count 232 10^3/uL (150-450); Red Blood Count 3.83 10^6 /uL (4.18-5.48); Red Cell Distribution Width 15 % (10-15)
[2022-03-30 07:03] LABS: ABS Eosinophils 0.1 10^3/ul (0-0.6); ABS Lymphocytes 1.7 10^3/ul (1.0-4.8); ABS Monocytes 1.6 10^3/ul (0-0.8); ABS Neutrophils 10.5 10^3/ul (1.5-7.7); Eosinophil % 0.8 %; Lymphocyte % 12.4 %
[2022-03-30 07:21] LABS: Calcium 7.8 mg/dL (8.6-10.3); Potassium 3.8 mmol/L (3.5-5.0); eGFR CKD-EPI 76.2 (>60)
[2022-03-30] MEDS: Azithromycin 500 mg/250 ml NS 500 MG/250 ML BAG IVPB SCH (13:44)
[2022-03-30] MEDS ORDERED: Potassium Chlor 20 meq TAB.ER PO ONE (15:00)
[2022-03-30 20:13] LABS: Anaplasma phagocytophilum Negative (Negative); B. miyamotoi PCR, B Negative (Negative); Babesia divergens/MO-1 Negative (Negative); Babesia ducani Negative (Negative); Ehrlichia chaffeensis Negative (Negative); Ehrlichia ewingii/canis Negative (Negative); Ehrlichia muris eauclairensis Negative (Negative)
[2022-03-30] MEDS: Enoxaparin 40 MG/0.4 ML SYR SUBCUT SCH (21:07)
[2022-03-31] MEDS: ZOSYN 3.375 GM Q8H per EXTENDED INFUSION IV SCH ×2 (02:26→10:17)
[2022-03-31 06:47] LABS: ABS Eosinophils 0.2 10^3/ul (0-0.6); ABS Lymphocytes 1.3 10^3/ul (1.0-4.8); ABS Monocytes 0.9 10^3/ul (0-0.8); Eosinophil % 1.9 %; Hematocrit 31 % (42-52); Hemoglobin 10.2 g/dL (14.0-18.0); Lymphocyte % 11.7 %; Mean Corpuscular HGB Conc 33 g/dL (31-36); Mean Corpuscular Hemoglobin 28 pg (27-31); Mean Corpuscular Volume 84 fL (80-94); Mean Platelet Volume 8.2 fL (7.4-10.4); Platelet Count 328 10^3/uL (150-450); Red Cell Distribution Width 15 % (10-15); White Blood Count 11.5 10^3/uL (3.5-10.8)
[2022-03-31 07:26] LABS: Calcium 7.9 mg/dL (8.6-10.3); Potassium 3.9 mmol/L (3.5-5.0); eGFR CKD-EPI 86.6 (>60)
[2022-03-31] MEDS ORDERED: Furosemide 40 mg/4 ml IV VIAL IV ONE (09:39)
[2022-03-31] MEDS: Azithromycin 500 mg/250 ml NS 500 MG/250 ML BAG IVPB SCH (13:27)
[2022-03-31] MEDS ORDERED: cefTRIAXone 2 gm/50 mL D5W 2 GM/50 ML BAG IV SCH (18:00)
[2022-03-31] MEDS: cefTRIAXone 2 GM ADDV.VIAL 2 GM in NS 0.9% 100 ml BAG 100 ML IV SCH (18:13)
[2022-03-31] MEDS: Enoxaparin 40 MG/0.4 ML SYR SUBCUT SCH (20:10)
[2022-04-01 06:59] LABS: Hematocrit 32 % (42-52); Hemoglobin 10.7 g/dL (14.0-18.0); Mean Corpuscular HGB Conc 33 g/dL (31-36); Mean Corpuscular Hemoglobin 28 pg (27-31); Mean Corpuscular Volume 84 fL (80-94); Mean Platelet Volume 7.7 fL (7.4-10.4); Platelet Count 496 10^3/uL (150-450); Red Blood Count 3.85 10^6 /uL (4.18-5.48); Red Cell Distribution Width 15 % (10-15); White Blood Count 11.3 10^3/uL (3.5-10.8)
[2022-04-01 07:42] LABS: Calcium 8.2 mg/dL (8.6-10.3); Magnesium 2.1 mg/dL (1.9-2.7); Potassium 4.4 mmol/L (3.5-5.0); eGFR CKD-EPI 97.1 (>60)
[2022-04-01] MEDS ORDERED: Midazolam 5 mg/5 ml VIAL 1 mg/ml 5 ml VIAL (5 mg) ONE (15:04)
[2022-04-01] MEDS ORDERED: Ondansetron 4 mg VIAL 2 MG/ML 2 ml VIAL ONE (15:04)
[2022-04-01] MEDS ORDERED: Propofol 10 MG/ML 20 ML BTL ONE (15:04)
[2022-04-01] MEDS ORDERED: fentaNYL 100 mcg/2 ml 50 MCG/ML VIAL ONE (15:04)
[2022-04-01] MEDS ORDERED: Lidocaine 2% PF 5 ML VIAL ONE (15:04)
[2022-04-01] MEDS ORDERED: Lidocaine 4% TOPICAL 50 ML TOP.SOLN ONE (15:04)
[2022-04-01] MEDS ORDERED: Naloxone 0.4 mg VIAL 0.4 mg/ml 1 ml VIAL IV PRN (16:35)
[2022-04-01] MEDS: cefTRIAXone 2 GM ADDV.VIAL 2 GM in NS 0.9% 100 ml BAG 100 ML IV SCH (18:16)
[2022-04-01] MEDS: Enoxaparin 40 MG/0.4 ML SYR SUBCUT SCH (22:01)
[2022-04-02 09:26] LABS: Hematocrit 32 % (42-52); Hemoglobin 10.4 g/dL (14.0-18.0); Mean Corpuscular HGB Conc 33 g/dL (31-36); Mean Corpuscular Hemoglobin 28 pg (27-31); Mean Corpuscular Volume 85 fL (80-94); Mean Platelet Volume 7.3 fL (7.4-10.4); Platelet Count 566 10^3/uL (150-450); Red Blood Count 3.79 10^6 /uL (4.18-5.48); Red Cell Distribution Width 15 % (10-15); White Blood Count 9.5 10^3/uL (3.5-10.8)
[2022-04-02 10:02] LABS: Calcium 8.2 mg/dL (8.6-10.3); Magnesium 2.1 mg/dL (1.9-2.7); Potassium 4.5 mmol/L (3.5-5.0); eGFR CKD-EPI 98.6 (>60)
[2022-04-02 15:21] VITALS: BP 117/72
[2022-04-02] MEDS: cefTRIAXone 2 GM ADDV.VIAL 2 GM in NS 0.9% 100 ml BAG 100 ML IV SCH (17:04)
== END 2022-04-02 18:12 | disposition home or self-care (01) | DRG 720 ==
LOC: ED 20:09 → EDHOLD 20:09 → SUATTDRO 03-28 00:59 → MED 03-28 18:19
PROVIDERS: ADMIT Student in an Organized Health Care Education/Training Program; ATTEND Internal Medicine
PROC: O.CATEE (2022-04-01 14:30)